=== PATIENT | male | born 1965 | race African-American/Black ===

== ENCOUNTER 2017-04-06 23:38 | Inpatient (IN) | payer MEDICAID ==
[~2017-04-06] VITALS: Ht 170.2 cm; Wt 102.5 kg
[2017-04-07] VITALS (20 sets, daily range): BP systolic 94–141; BP diastolic 46–94
[2017-04-07] MEDS ORDERED: DEXT 5%/0.9% NACL 1,000 ML IV ONE (00:33)
[2017-04-07 01:13] LABS: BASOPHILS % 0.4 % (0.0-2.0); EOSINOPHILS % 0.6 % (0.0-5.0); HEMATOCRIT. 48.5 % (42.0-52.0); HEMOGLOBIN. 15.9 g/dL (14.0-18.0); LYMPHOCYTES % 14.6 % (20.0-50.0); MEAN CORPUSCULAR HEMOGLOBIN 29.3 pg (28.0-32.0); MEAN CORPUSCULAR VOLUME 89.1 fL (80.0-94.0); MEAN PLATELET VOLUME 8.9 fl (7.4-10.4); NEUTROPHILS % 75.4 % (40.0-76.0); PLATELET 122 x1000/uL (130-400); RED BLOOD CELL COUNT 5.44 mill/uL (4.7-6.1); RED CELL DISTRIBUTION WIDTH 14.7 % (11.6-14.6)
[2017-04-07 01:33] LABS: CARBON DIOXIDE 23 mEq/L (21-32); CHLORIDE 99 mEq/L (98-107); TROPONIN I 0.13 ng/mL (0.00-0.04)
[2017-04-07] MEDS ORDERED: MORPHINE SULFATE 4 MG/ML CPJ (NOT FOR IM USE) IV ONE (04:30)
[2017-04-07] MEDS ORDERED: SODIUM CHLORIDE 0.9% 1,000 ML IV ONE (04:52)
[2017-04-07] MEDS ORDERED: MORPHINE SULFATE 2 MG/ML CPJ (NOT FOR IM USE) IV ONE (06:06)
[2017-04-07] MEDS ORDERED: CLONIDINE 0.1MG TABLET PO PRN (08:45)
[2017-04-07] MEDS ORDERED: FUROSEMIDE 40MG/4ML VIAL IVP SCH (09:00)
[2017-04-07] MEDS ORDERED: METOPROLOL TARTRATE 50MG TABLET PO SCH (09:00)
[2017-04-07] MEDS ORDERED: AMLODIPINE 10MG TABLET PO SCH (09:45)
[2017-04-07] MEDS ORDERED: DEXTROSE 50% WATER 50ML SYRINGE IV PRN (09:45)
[2017-04-07] MEDS ORDERED: HYDROCODONE/ACETAMINOPHEN 10/325MG TABLET PO PRN (09:45)
[2017-04-07] MEDS ORDERED: ACETAMINOPHEN 325MG TABLET PO PRN (09:45)
[2017-04-07] MEDS ORDERED: LORAZEPAM 2MG/ML CPJ IV PRN (09:45)
[2017-04-07] MEDS ORDERED: ONDANSETRON HCL 4MG/2ML VIAL IV PRN (09:45)
[2017-04-07] MEDS ORDERED: MVI, ADULT NO.1 10 ML, FOLIC ACID 1 MG, THIAMINE HCL 100 MG in SODIUM CHLORIDE 0.9% 1,0... IV NR ×4 (12:00)
[2017-04-07 12:15] LABS: HEPATITIS B SURFACE ANTIGEN NEGATIVE
[2017-04-07] MEDS: BLOOD SUGAR DIAGNOSTIC STRIP TEST SCH ×3 (12:26→21:24)
[2017-04-07 12:43] LABS: HEPATITIS B CORE AB IGM NEGATIVE
[2017-04-07 12:44] LABS: HEPATITIS A AB IGM NEGATIVE (NEGATIVE)
[2017-04-07] MEDS ORDERED: HEPARIN 5000 UNITS/ML VIAL IV NR (14:00)
[2017-04-07] MEDS ORDERED: DIGOXIN 500MCG/2ML AMP IV NR (14:00)
[2017-04-07] MEDS: INSULIN LISPRO 100 UNITS/ML SUBCUT SCH ×3 (14:03→21:00)
[2017-04-07] MEDS: OMEPRAZOLE 20MG CAPSULE EXTENDED RELEASE PO SCH (14:30)
[2017-04-07] MEDS: CHLORDIAZEPOXIDE 25MG CAPSULE PO SCH ×2 (14:31→21:23)
[2017-04-07 15:02] LABS: INR 1.3; PARTIAL THROMBOPLASTIN TIME 30.2 sec (23.4-31.0)
[2017-04-07 15:17] LABS: CREATINE KINASE 133 IU/L (39-308); ETHANOL BLOOD < 10 mg/dL
[2017-04-07] MEDS ORDERED: HEPARIN 25,000 UNITS PREMIX 500 ML IV SCH (15:45)
[2017-04-07] MEDS: CEFTRIAXONE 1 G PREMIX 50 ML IV SCH (16:04)
[2017-04-07] MEDS: HEPARIN 25,000 UNITS PREMIX 500 ML IV SCH (16:33)
[2017-04-07] MEDS ORDERED: DIGOXIN 500MCG/2ML AMP IV PRN (17:00)
[2017-04-07] MEDS: ASPIRIN 81MG TABLET PO SCH (18:48)
[2017-04-07 20:43] LABS: CLARITY URINE TURBID (CLEAR); COLOR URINE DARK YELLOW (YELLOW); GLUCOSE URINE 2+ (NEGATIVE); KETONES URINE TRACE (NEGATIVE); LEUKOCYTE ESTERASE URINE TRACE (NEGATIVE); NITRITE URINE NEGATIVE (NEGATIVE); OCCULT BLOOD URINE TRACE (NEGATIVE); PROTEIN URINE 4+ (NEGATIVE); SPECIFIC GRAVITY URINE 1.034 (1.005-1.030)
[2017-04-07 20:52] LABS: *AMPHETAMINES SCREEN URINE NEGATIVE (NEGATIVE); *BARBITURATES SCREEN URINE NEGATIVE (NEGATIVE); *BENZODIAZEPINES SCREEN URINE NEGATIVE (NEGATIVE); *COCAINE SCREEN URINE NEGATIVE (NEGATIVE); CANNABINOID URINE SCREEN NEGATIVE (NEGATIVE); METHADONE URINE SCREEN NEGATIVE (NEGATIVE); OPIATES URINE SCREEN PRESUMTIVE POSITIVE (NEGATIVE); PHENCYCLIDINE URINE SCREEN NEGATIVE (NEGATIVE)
[2017-04-07] MEDS ORDERED: HEPARIN BOLUS PRN aPTT <36 IV (21:00)
[2017-04-07] MEDS: CARVEDILOL 3.125 MG TABLET PO SCH (21:00)
[2017-04-08] VITALS (49 sets, daily range): BP systolic 76–178; BP diastolic 35–111
[2017-04-08 00:08] LABS: TROPONIN I 1.8 ng/mL (0.00-0.04)
[2017-04-08] MEDS: CHLORDIAZEPOXIDE 25MG CAPSULE PO SCH ×4 (05:17→21:00)
[2017-04-08 06:53] LABS: BASOPHILS % 0.6 % (0.0-2.0); EOSINOPHILS % 1.1 % (0.0-5.0); HEMOGLOBIN. 14.4 g/dL (14.0-18.0); LYMPHOCYTES % 25.3 % (20.0-50.0); MEAN CORPUSCULAR HEMOGLOBIN 29.3 pg (28.0-32.0); MEAN CORPUSCULAR VOLUME 88.8 fL (80.0-94.0); MEAN PLATELET VOLUME 8.9 fl (7.4-10.4); MONOCYTES % 12.2 % (2.0-8.0); NEUTROPHILS % 60.8 % (40.0-76.0); PLATELET 111 x1000/uL (130-400); RED CELL DISTRIBUTION WIDTH 14.4 % (11.6-14.6)
[2017-04-08] MEDS ORDERED: SODIUM CHLORIDE 0.9% 1,000 ML IV SCH (07:00)
[2017-04-08] MEDS: HEPARIN BOLUS PRN aPTT 37-44 IV (07:03)
[2017-04-08 07:11] LABS: CHLORIDE 105 mEq/L (98-107)
[2017-04-08 07:29] LABS: CARBON DIOXIDE 23 mEq/L (21-32); CREATINE KINASE 109 IU/L (39-308); CREATINE KINASE MB FRACTION 5.2 ng/mL (0.5-3.6); HDL CHOLESTEROL 43 mg/dL (40-59); LDL CHOLESTEROL 60 mg/dL (5-100)
[2017-04-08 07:47] LABS: HEMATOCRIT. 44.5 % (42.0-52.0)
[2017-04-08] MEDS: BLOOD SUGAR DIAGNOSTIC STRIP TEST SCH ×4 (08:00→20:33)
[2017-04-08] MEDS: INSULIN LISPRO 100 UNITS/ML SUBCUT SCH ×4 (08:01→20:37)
[2017-04-08 08:03] LABS: BG BASE EXCESS -5.6 mmol/L (-2.0-2.0); BG CARBOXYHEMOGLOBIN 1.1 % (0.5-1.5); BG DEOXYHEMOGLOBIN 5.9 % (0.0-5.0); BG FRACTION INSPIRED OXYGEN 28; BG HCO3 ACT 19.5 mmol/L (22.0-26.0); BG METHEMOGLOBIN 0.4 % (0.0-1.5); BG OXYHEMOGLOBIN 92.6 % (94.0-97.0); BG PH 7.339 (7.350-7.450); BG PO2 75.8 mmHg (75.0-100.0); BG SAMPLE SITE RIGHT RADIAL; BG TOTAL HEMOGLOBIN 15.7 g/dL (12.0-18.0); BG VENT MODE NASAL CANNULA
[2017-04-08] MEDS ORDERED: DIGO125T82 PO (08:22)
[2017-04-08] MEDS ORDERED: GLIP10TA10 PO (08:23)
[2017-04-08] MEDS ORDERED: SPIR25TA4 PO (08:23)
[2017-04-08] MEDS ORDERED: FURO-152 PO (08:24)
[2017-04-08] MEDS ORDERED: AMLO5TAB4 PO (08:24)
[2017-04-08] MEDS ORDERED: ASPI-1159 PO (08:25)
[2017-04-08] MEDS ORDERED: COR25 PO (08:26)
[2017-04-08] MEDS ORDERED: QUIN40TA14 PO (08:26)
[2017-04-08] MEDS ORDERED: EMPA1TAB7 PO (08:27)
[2017-04-08] MEDS ORDERED: CLAR10 PO (08:28)
[2017-04-08] MEDS ORDERED: VIAG50 PO (08:29)
[2017-04-08] MEDS ORDERED: ATOR-2 PO (08:30)
[2017-04-08] MEDS: OMEPRAZOLE 20MG CAPSULE EXTENDED RELEASE PO SCH (09:08)
[2017-04-08] MEDS: ASPIRIN 81MG TABLET PO SCH (09:09)
[2017-04-08] MEDS: CARVEDILOL 3.125 MG TABLET PO SCH ×2 (09:09→21:00)
[2017-04-08] MEDS ORDERED: CARVEDILOL 3.125 MG TABLET PO SCH (09:30)
[2017-04-08] MEDS ORDERED: DIGOXIN 500MCG/2ML AMP IV NR (11:00)
[2017-04-08] MEDS: CEFTRIAXONE 1 G PREMIX 50 ML IV SCH (13:23)
[2017-04-08] MEDS ORDERED: CARVEDILOL 6.25 MG TABLET PO SCH (14:00)
[2017-04-08] MEDS: HEPARIN 25,000 UNITS PREMIX 500 ML IV SCH (16:13)
[2017-04-08 16:50] LABS: AMMONIA 44 uMol/L (<32)
[2017-04-09] VITALS (39 sets, daily range): BP systolic 122–200; BP diastolic 40–121
[2017-04-09 03:41] LABS: BASOPHILS % 1.1 % (0.0-2.0); EOSINOPHILS % 0.6 % (0.0-5.0); HEMOGLOBIN. 14.2 g/dL (14.0-18.0); LYMPHOCYTES % 19.4 % (20.0-50.0); MEAN CORPUSCULAR HEMOGLOBIN 29.2 pg (28.0-32.0); MEAN CORPUSCULAR VOLUME 88.4 fL (80.0-94.0); MEAN PLATELET VOLUME 8.5 fl (7.4-10.4); MONOCYTES % 13.3 % (2.0-8.0); NEUTROPHILS % 65.6 % (40.0-76.0); PLATELET 138 x1000/uL (130-400); RED BLOOD CELL COUNT 4.87 mill/uL (4.7-6.1); RED CELL DISTRIBUTION WIDTH 14.5 % (11.6-14.6)
[2017-04-09 03:59] LABS: CARBON DIOXIDE 26 mEq/L (21-32); CHLORIDE 102 mEq/L (98-107)
[2017-04-09] MEDS: CHLORDIAZEPOXIDE 25MG CAPSULE PO SCH ×2 (05:07→14:29)
[2017-04-09] MEDS: CARVEDILOL 3.125 MG TABLET PO SCH (05:07)
[2017-04-09] MEDS: BLOOD SUGAR DIAGNOSTIC STRIP TEST SCH ×4 (07:50→20:07)
[2017-04-09] MEDS: INSULIN LISPRO 100 UNITS/ML SUBCUT SCH ×4 (08:20→20:14)
[2017-04-09] MEDS: ASPIRIN 81MG TABLET PO SCH (09:31)
[2017-04-09] MEDS: OMEPRAZOLE 20MG CAPSULE EXTENDED RELEASE PO SCH (09:31)
[2017-04-09] MEDS ORDERED: MORPHINE SULFATE 2 MG/ML CPJ (NOT FOR IM USE) IV PRN (09:45)
[2017-04-09] MEDS: CEFTRIAXONE 1 G PREMIX 50 ML IV SCH (11:17)
[2017-04-09] MEDS: HEPARIN 25,000 UNITS PREMIX 500 ML IV SCH (14:28)
[2017-04-09] MEDS ORDERED: CHLORDIAZEPOXIDE 25MG CAPSULE PO PRN ×2 (15:30)
[2017-04-09] MEDS: CARVEDILOL 6.25 MG TABLET PO SCH (20:15)
[2017-04-09] MEDS: AMLODIPINE 2.5MG TABLET PO SCH (20:16)
[2017-04-09] MEDS: MORPHINE SULFATE 4 MG/ML CPJ (NOT FOR IM USE) IV PRN (20:16)
[2017-04-10] VITALS (12 sets, daily range): BP systolic 114–153; BP diastolic 75–95
[2017-04-10] MEDS: HEPARIN BOLUS PRN aPTT 37-44 IV (00:30)
[2017-04-10] MEDS: HEPARIN 25,000 UNITS PREMIX 500 ML IV SCH ×2 (00:30→07:13)
[2017-04-10 05:49] LABS: BASOPHILS % 0.4 % (0.0-2.0); EOSINOPHILS % 0.4 % (0.0-5.0); HEMATOCRIT. 40.8 % (42.0-52.0); HEMOGLOBIN. 13.5 g/dL (14.0-18.0); LYMPHOCYTES % 16.6 % (20.0-50.0); MEAN CORPUSCULAR HEMOGLOBIN 29.3 pg (28.0-32.0); MEAN CORPUSCULAR VOLUME 88.5 fL (80.0-94.0); MEAN PLATELET VOLUME 8.7 fl (7.4-10.4); MONOCYTES % 13.3 % (2.0-8.0); NEUTROPHILS % 69.3 % (40.0-76.0); PLATELET 134 x1000/uL (130-400); RED BLOOD CELL COUNT 4.61 mill/uL (4.7-6.1); RED CELL DISTRIBUTION WIDTH 14.6 % (11.6-14.6)
[2017-04-10] MEDS: BLOOD SUGAR DIAGNOSTIC STRIP TEST SCH ×4 (05:52→20:53)
[2017-04-10] MEDS: OMEPRAZOLE 20MG CAPSULE EXTENDED RELEASE PO SCH (05:52)
[2017-04-10] MEDS: INSULIN LISPRO 100 UNITS/ML SUBCUT SCH ×4 (06:03→21:17)
[2017-04-10 08:01] LABS: CARBON DIOXIDE 26 mEq/L (21-32)
[2017-04-10] MEDS: AMLODIPINE 2.5MG TABLET PO SCH ×2 (08:13→21:14)
[2017-04-10] MEDS: CARVEDILOL 6.25 MG TABLET PO SCH (08:13)
[2017-04-10] MEDS: ASPIRIN 81MG TABLET PO SCH (08:13)
[2017-04-10 08:41] LABS: CHLORIDE 97 mEq/L (98-107)
[2017-04-10] MEDS: CEFTRIAXONE 1 G PREMIX 50 ML IV SCH (12:13)
[2017-04-10] MEDS: ENOXAPARIN 100MG/ML SYR SUBCUT SCH ×2 (12:13→21:15)
[2017-04-10] MEDS: CARVEDILOL 12.5MG TABLET PO SCH (21:15)
[2017-04-10 22:19] LABS: SODIUM URINE RANDOM 11 mEq/L
[2017-04-11] VITALS (20 sets, daily range): BP systolic 97–171; BP diastolic 49–103
[2017-04-11] MEDS: MORPHINE SULFATE 4 MG/ML CPJ (NOT FOR IM USE) IV PRN ×2 (00:55→09:23)
[2017-04-11 06:48] LABS: BASOPHILS % 0.4 % (0.0-2.0); EOSINOPHILS % 0.8 % (0.0-5.0); HEMATOCRIT. 39.5 % (42.0-52.0); HEMOGLOBIN. 13.2 g/dL (14.0-18.0); LYMPHOCYTES % 18.3 % (20.0-50.0); MEAN CORPUSCULAR HEMOGLOBIN 29.3 pg (28.0-32.0); MEAN CORPUSCULAR VOLUME 87.8 fL (80.0-94.0); MEAN PLATELET VOLUME 8.7 fl (7.4-10.4); NEUTROPHILS % 67.5 % (40.0-76.0); PLATELET 151 x1000/uL (130-400); RED CELL DISTRIBUTION WIDTH 14.4 % (11.6-14.6)
[2017-04-11] MEDS: BLOOD SUGAR DIAGNOSTIC STRIP TEST SCH ×4 (06:50→21:30)
[2017-04-11 07:12] LABS: A/G RATIO 0.8 (0.7-1.7); ALBUMIN 2.7 g/dL (2.9-4.4); ALPHA-1-GLOBULIN 0.4 g/dL (0.0-0.4); ALPHA-2-GLOBULIN 0.8 g/dL (0.4-1.0); BETA GLOBULIN 0.9 g/dL (0.7-1.3); GAMMA GLOBULINS 1.2 g/dL (0.4-1.8); GLOBULIN TOTAL 3.3 g/dL (2.2-3.9); M-SPIKE Not Observed g/dL (Not Observed)
[2017-04-11] MEDS: INSULIN LISPRO 100 UNITS/ML SUBCUT SCH ×3 (07:20→21:30)
[2017-04-11 07:43] LABS: CARBON DIOXIDE 27 mEq/L (21-32); CHLORIDE 97 mEq/L (98-107); PHOSPHORUS 2.9 mg/dL (2.5-4.9)
[2017-04-11] MEDS: ENOXAPARIN 100MG/ML SYR SUBCUT SCH ×2 (08:30→21:28)
[2017-04-11] MEDS: FAMOTIDINE 20MG TABLET PO SCH ×2 (08:31→16:33)
[2017-04-11] MEDS: ASPIRIN 81MG TABLET PO SCH (08:31)
[2017-04-11] MEDS: AMLODIPINE 2.5MG TABLET PO SCH ×2 (08:31→21:00)
[2017-04-11] MEDS: CARVEDILOL 12.5MG TABLET PO SCH ×2 (08:31→21:29)
[2017-04-11] MEDS: DEMECLOCYCLINE HCL 300MG TABLET PO SCH ×3 (09:23→21:28)
[2017-04-11] MEDS: CEFTRIAXONE 1 G PREMIX 50 ML IV SCH (11:57)
[2017-04-11] MEDS ORDERED: MAGNESIUM 2 G PREMIX 50 ML IV NR (12:00)
[2017-04-11] MEDS ORDERED: MORPHINE SULFATE 4 MG/ML CPJ (NOT FOR IM USE) IV PRN (15:45)
[2017-04-12] VITALS (12 sets, daily range): BP systolic 106–159; BP diastolic 41–106
[2017-04-12] MEDS: MORPHINE SULFATE 4 MG/ML CPJ (NOT FOR IM USE) IV PRN (00:33)
[2017-04-12] MEDS: DEMECLOCYCLINE HCL 300MG TABLET PO SCH ×3 (06:02→21:20)
[2017-04-12] MEDS: BLOOD SUGAR DIAGNOSTIC STRIP TEST SCH ×4 (06:03→21:21)
[2017-04-12 06:16] LABS: ALBUMIN URINE 40.9 % (.); ALPHA-1-GLOBULIN URINE 3.3 % (.); ALPHA-2-GLOBULIN URINE 17.2 % (.); GAMMA GLOBULIN URINE 25.6 % (.)
[2017-04-12 06:39] LABS: INR 1.1; PROTHROMBIN TIME 11.9 sec (9.4-11.6)
[2017-04-12 07:08] LABS: BASOPHILS % 0.6 % (0.0-2.0); EOSINOPHILS % 1.4 % (0.0-5.0); HEMATOCRIT. 38.7 % (42.0-52.0); LYMPHOCYTES % 11.8 % (20.0-50.0); MEAN CORPUSCULAR VOLUME 86.3 fL (80.0-94.0); MEAN PLATELET VOLUME 8.7 fl (7.4-10.4); MONOCYTES % 11.9 % (2.0-8.0); NEUTROPHILS % 74.3 % (40.0-76.0); PLATELET 173 x1000/uL (130-400); RED BLOOD CELL COUNT 4.48 mill/uL (4.7-6.1); RED CELL DISTRIBUTION WIDTH 14.2 % (11.6-14.6)
[2017-04-12 07:26] LABS: CARBON DIOXIDE 28 mEq/L (21-32); CHLORIDE 96 mEq/L (98-107); PHOSPHORUS 2.6 mg/dL (2.5-4.9)
[2017-04-12] MEDS: INSULIN LISPRO 100 UNITS/ML SUBCUT SCH ×4 (08:20→21:21)
[2017-04-12] MEDS: ASPIRIN 81MG TABLET PO SCH (08:21)
[2017-04-12] MEDS: FAMOTIDINE 20MG TABLET PO SCH ×2 (08:21→16:38)
[2017-04-12] MEDS: CARVEDILOL 12.5MG TABLET PO SCH ×2 (08:21→21:20)
[2017-04-12] MEDS: AMLODIPINE 2.5MG TABLET PO SCH ×2 (08:28→21:20)
[2017-04-12] MEDS: ENOXAPARIN 100MG/ML SYR SUBCUT SCH (08:30)
[2017-04-12] MEDS: APIXABAN 5 MG TABLET PO SCH ×2 (11:30→16:38)
[2017-04-12] MEDS: CLONIDINE 0.1MG TABLET PO PRN (18:18)
[2017-04-13] VITALS (10 sets, daily range): BP systolic 117–159; BP diastolic 62–95
[2017-04-13] MEDS: DEMECLOCYCLINE HCL 300MG TABLET PO SCH ×2 (05:45→13:20)
[2017-04-13] MEDS: BLOOD SUGAR DIAGNOSTIC STRIP TEST SCH ×3 (05:56→16:15)
[2017-04-13] MEDS: CLONIDINE 0.1MG TABLET PO PRN (06:15)
[2017-04-13] MEDS: MORPHINE SULFATE 4 MG/ML CPJ (NOT FOR IM USE) IV PRN (06:39)
[2017-04-13 07:03] LABS: INR 1.2; PROTHROMBIN TIME 12.3 sec (9.4-11.6)
[2017-04-13 07:35] LABS: HEMATOCRIT. 37.4 % (42.0-52.0); HEMOGLOBIN. 12.5 g/dL (14.0-18.0); MEAN CORPUSCULAR HEMOGLOBIN 29.3 pg (28.0-32.0); MEAN CORPUSCULAR VOLUME 87.7 fL (80.0-94.0); PLATELET 185 x1000/uL (130-400); RED BLOOD CELL COUNT 4.26 mill/uL (4.7-6.1); RED CELL DISTRIBUTION WIDTH 14.3 % (11.6-14.6)
[2017-04-13] MEDS: INSULIN LISPRO 100 UNITS/ML SUBCUT SCH ×3 (07:53→17:16)
[2017-04-13] MEDS: APIXABAN 5 MG TABLET PO SCH ×2 (08:02→16:15)
[2017-04-13] MEDS: CARVEDILOL 12.5MG TABLET PO SCH (08:02)
[2017-04-13] MEDS: FAMOTIDINE 20MG TABLET PO SCH ×2 (08:02→16:15)
[2017-04-13] MEDS: ASPIRIN 81MG TABLET PO SCH (08:02)
[2017-04-13] MEDS: AMLODIPINE 2.5MG TABLET PO SCH (08:03)
[2017-04-13 08:08] LABS: CARBON DIOXIDE 27 mEq/L (21-32); CHLORIDE 99 mEq/L (98-107)
[2017-04-13] MEDS ORDERED: MAGNESIUM 2 G PREMIX 50 ML IV NR (12:30)
[2017-04-14 08:47] LABS: PLATELET ESTIMATE NORMAL
== END 2017-04-13 17:05 | disposition home or self-care (01) | DRG 134 ==
LOC: ER 23:38 → 5EST 04-07 04:05 → EDBEDREQ 04-07 04:11 → EDBEDREQTM 04-07 04:11 → ENRESERV 04-07 04:44 → ER 04-07 07:06 → CVICU 04-07 15:15 → 3WST 04-09 16:09
PROVIDERS: ADMIT Internal Medicine; ATTEND Internal Medicine
DX: I26.99 Other pulmonary embolism without acute cor pulmonale (principal); I21.4 Non-ST elevation (NSTEMI) myocardial infarction; N17.0 Acute kidney failure with tubular necrosis; J96.01 Acute respiratory failure with hypoxia; I50.43 Acute on chronic combined systolic (congestive) and diastolic (congestive) heart failure; G93.40 Encephalopathy, unspecified; K85.90 Acute pancreatitis without necrosis or infection, unspecified; I95.9 Hypotension, unspecified; I13.0 Hypertensive heart and chronic kidney disease with heart failure and stage 1 through stage 4 chronic kidney disease, or unspecified chronic kidney disease; D69.6 Thrombocytopenia, unspecified; E87.2 Acidosis; I48.91 Unspecified atrial fibrillation; K74.60 Unspecified cirrhosis of liver; N39.0 Urinary tract infection, site not specified; E11.22 Type 2 diabetes mellitus with diabetic chronic kidney disease; E66.9 Obesity, unspecified; E78.5 Hyperlipidemia, unspecified; E83.42 Hypomagnesemia; E87.1 Hypo-osmolality and hyponatremia; I82.402 Acute embolism and thrombosis of unspecified deep veins of left lower extremity; K76.0 Fatty (change of) liver, not elsewhere classified; N18.9 Chronic kidney disease, unspecified; I42.9 Cardiomyopathy, unspecified; Z79.01 Long term (current) use of anticoagulants; Z82.49 Family history of ischemic heart disease and other diseases of the circulatory system; Z83.3 Family history of diabetes mellitus; E44.0 Moderate protein-calorie malnutrition
CPT/HCPCS: 36415; 36600; 71010; 74176; 76705; 76770; 78582; 80048; 80053; 80061; 80076; 80162; 80305; 81001; 82140; 82150; 82248; 82375; 82533; 82550; 82553; 82570; 82728; 82805; 82962; 83036; 83605; 83690; 83735; 83880; 83930; 83935; 84100; 84153; 84155; 84156; 84165; 84166; 84300; 84443; 84484; 85025; 85379; 85610; 85730; 86038; 86705; 86709; 86803; 87040; 87086; 87340; 93005; 93306; 93970; 96365; 96366; 96375; 97116; 97162; 97530; 99285; A9558; G0482; J0696; J1160; J1644; J1650; J1815; J1940; J2060; J2270; J3411; J3475; J3490; J7030; J7040; J7042; J7050

== ENCOUNTER 2017-05-28 12:18 | Emergency (ER) | payer MEDICAID ==
[~2017-05-28] VITALS: Ht 172.7 cm; Wt 85.0 kg
[~2017-05-28 12:18] MED LIST: AMLO5TAB4 PO; ASPI-1159 PO; ATOR-2 PO; CLAR10 PO; COR25 PO; DIGO125T82 PO; EMPA1TAB7 PO; FURO-152 PO; GLIP10TA10 PO; QUIN40TA14 PO; SPIR25TA4 PO; VIAG50 PO
[2017-05-28] MEDS ORDERED: ACETAMINOPHEN 325MG TABLET PO STA (13:10)
[2017-05-28] MEDS ORDERED: SODIUM CHLORIDE 0.9% 1000ML BAG (SEPSIS BOLUS) IV ONE (13:15)
[2017-05-28 13:29] LABS: BASOPHILS % 1.1 % (0.0-2.0); HEMATOCRIT. 43.8 % (42.0-52.0); HEMOGLOBIN. 14.7 g/dL (14.0-18.0); LYMPHOCYTES % 17.3 % (20.0-50.0); MEAN CORPUSCULAR HEMOGLOBIN 28.9 pg (28.0-32.0); MEAN CORPUSCULAR VOLUME 86.1 fL (80.0-94.0); MEAN PLATELET VOLUME 8.3 fl (7.4-10.4); MONOCYTES % 13.6 % (2.0-8.0); PLATELET 131 x1000/uL (130-400); RED BLOOD CELL COUNT 5.09 mill/uL (4.7-6.1); RED CELL DISTRIBUTION WIDTH 15.5 % (11.6-14.6)
[2017-05-28 13:35] LABS: INR 1.1; PROTHROMBIN TIME 11.2 sec (9.4-11.6)
[2017-05-28 13:36] LABS: CHLORIDE 102 mEq/L (98-107)
[2017-05-28 13:44] LABS: CARBON DIOXIDE 30 mEq/L (21-32)
[2017-05-28 13:57] LABS: GLUCOSE URINE 3+ (NEGATIVE); KETONES URINE NEGATIVE (NEGATIVE); LEUKOCYTE ESTERASE URINE NEGATIVE (NEGATIVE); NITRITE URINE NEGATIVE (NEGATIVE); OCCULT BLOOD URINE NEGATIVE (NEGATIVE); PH URINE 5.5 (4.5-8.0); PROTEIN URINE NEGATIVE (NEGATIVE); SPECIFIC GRAVITY URINE 1.024 (1.005-1.030)
[2017-05-28 14:00] LABS: CLARITY URINE CLEAR (CLEAR); COLOR URINE YELLOW (YELLOW)
[2017-05-28] MEDS ORDERED: KETOROLAC 30MG/ML VIAL IV ONE (15:30)
[2017-05-28 16:14] VITALS: BP 116/77
== END 2017-05-28 16:15 | disposition home or self-care (01) ==
LOC: ER 12:27
DX: N28.9 Disorder of kidney and ureter, unspecified (principal); R50.9 Fever, unspecified; I10 Essential (primary) hypertension; E11.9 Type 2 diabetes mellitus without complications; Z79.82 Long term (current) use of aspirin; Z86.73 Personal history of transient ischemic attack (TIA), and cerebral infarction without residual deficits
CPT/HCPCS: 36415; 71010; 80053; 81001; 83605; 85025; 85610; 87040; 96361; 96374; 99285; J1885; J7030; Z7610

== ENCOUNTER 2018-09-13 09:51 | Emergency (ER) | payer MEDICAID ==
[~2018-09-13] VITALS: Ht 170.2 cm; Wt 104.5 kg
[~2018-09-13 09:51] MED LIST changes: -SPIR25TA4 PO; +SPIR25TA6 PO
[2018-09-13] MEDS ORDERED: IBUPROFEN 600MG TABLET PO ONE (15:00)
[2018-09-13 17:11] VITALS: BP 140/86
== END 2018-09-13 17:11 | disposition home or self-care (01) ==
LOC: ER 10:10
DX: M25.572 Pain in left ankle and joints of left foot (principal); M79.89 Other specified soft tissue disorders; I11.0 Hypertensive heart disease with heart failure; I50.9 Heart failure, unspecified; E11.9 Type 2 diabetes mellitus without complications; E78.00 Pure hypercholesterolemia, unspecified; Z79.82 Long term (current) use of aspirin; Z79.899 Other long term (current) drug therapy
CPT/HCPCS: 73610; 99283